=== PATIENT | male | born 1950 | race Caucasian/White ===

== ENCOUNTER 2018-02-27 21:20 | Emergency (ER) | payer MEDICARE, BC ==
[2018-02-27] MEDS ORDERED: cloNIDine 0.1 MG Tab PO STA (21:54)
--- NOTE | 2018-02-27 21:57 | EDM.PDOC ---
ED HPI GENERAL MEDICAL PROBLEM - General Chief Complaint: Cardiovascular Problem Stated Complaint: HIGH BLOOD PRESSURE 222 NOW KEEPS GOING UP Time Seen by Provider: 02/27/18 21:31 Source of Information: Reports: Patient, Old Records (ED 01/02/2018), RN Notes Reviewed History Limitations: Reports: No Limitations - History of Present Illness INITIAL COMMENTS - FREE TEXT/NARRATIVE: The patient states that he felt anxious around dinnertime tonight, therefore he checked his blood pressure. At 19:00, it was 183/111. At 20:00, it was 222/123, therefore the patient came to the ED for evaluation. His initial BP here in the ED was 208/105, with a HR of 62. At no time has the patient had a headache, blurry vision, chest pain, dyspnea, nausea, or diaphoresis. The patient has a history of hypertension, previously treated with metoprolol, but switched to Coreg 6.25 mg po BID on 01/05/2018. The patient states that he already took his Coreg tonight. His BP on 02/11/2018 was 150/95, and on 02/23/2018 , it was 160/100. The patient has a history of coronary artery disease, status post coronary angiogram on 06/20/2016, per the patient's Personnel Clerk, Dr. Kumar. No stents were placed, but the patient was started on Plavix. The patient's PCP is Kimberly Glover. - Related Data Allergies Allergy/AdvReac Type Severity Reaction Status Date / Time No Known Allergies Allergy Verified 01/02/18 22:33 Home Meds: Home Meds Clopidogrel [Plavix] 75 mg PO DAILY 06/20/16 [History] Aspirin [Low Dose Aspirin EC] 81 mg PO DAILY 01/02/18 [History] Pantoprazole Sodium [Protonix] 40 mg PO DAILY 01/02/18 [History] Rosuvastatin Calcium [Crestor] 40 mg PO DAILY 01/02/18 [History] Carvedilol [Coreg] 6.25 mg PO BID 02/27/18 [History] Past Medical History Cardiovascular History: Reports: CAD, High Cholesterol, Hypertension, [place] (2016) Gastrointestinal History: Reports: GERD - Past Surgical History Cardiovascular Surgical History: Reports: Other (See Below) (Coronary angiogram 06/20/2016) Social & Family History - Tobacco Use Smoking Status *Q: Never Smoker Tobacco Use Within Last Twelve Months: Smokeless Tobacco (Chews 1 poch per day) - Caffeine Use Caffeine Use: Reports: Tea - Alcohol Use Alcohol Use History: Yes Alcohol Use Frequency: Socially - Recreational Drug Use Recreational Drug Use: No - Living Situation & Occupation Living situation: Reports: Single, with Significant Other (Girlfriend) Occupation: Employed ([employer]) ED ROS GENERAL - Review of Systems Review Of Systems: ROS reveals no pertinent complaints other than HPI. ED EXAM, GENERAL - Physical Exam Exam: See Below Exam Limited By: No Limitations General Appearance: Alert, WD/WN, No Apparent Distress Eye Exam: Bilateral Eye: EOMI, Normal Inspection Ears: Normal External Exam, Hearing Grossly Normal Nose: Normal Inspection, No Blood Throat/Mouth: Normal Inspection, Normal Lips, Normal Voice, No Airway Compromise Head: Atraumatic, Normocephalic Neck: Normal Inspection, Full Range of Motion Respiratory/Chest: No Respiratory Distress, Lungs Clear, Normal Breath Sounds, No Accessory Muscle Use Cardiovascular: Normal Peripheral Pulses, Regular Rate, Rhythm, No Edema, No Gallop, No JVD, No Murmur, No Rub Peripheral Pulses: 4+: Radial (L), Radial (R) GI/Abdominal: Normal Bowel Sounds, Soft, Non-Tender, No Organomegaly, No Distention, No Abnormal Bruit, No Mass (Male) Exam: Deferred Rectal (Males) Exam: Deferred Back Exam: Normal Inspection, Full Range of Motion, NT Extremities: Normal Inspection, Normal Range of Motion, No Pedal Edema, Normal Capillary Refill Neurological: Alert, Oriented, Normal Cognition, No Motor/Sensory Deficits Psychiatric: Normal Affect Skin Exam: Warm, Dry, Intact, Normal Color, No Rash Course - Vital Signs Last Recorded V/S: Last Vital Signs Temp 36.8 C 02/27/18 21:34 Pulse 62 02/27/18 21:34 Resp 20 02/27/18 21:34 BP 168/106 H 02/27/18 22:15 Pulse Ox 98 02/27/18 21:34 - Orders/Labs/Meds Labs: Laboratory Tests 02/27/18 02/27/18 02/27/18 Range/Units 21:55 21:55 22:00 WBC 7.17 (4.23-9.07) K/mm3 RBC 5.04 (4.63-6.08) M/mm3 Hgb 14.4 (13.7-17.5) gm/L Hct 43.2 (40.1-51.0) % MCV 85.7 (79.0-92.2) fl MCH 28.6 (25.7-32.2) pg MCHC 33.3 (32.2-35.5) g/dl RDW Std Deviation 44.0 H (35.1-43.9) fL Plt Count 188 (163-337) K/mm3 MPV 9.5 (9.4-12.3) fl Neutrophils % (Manual) 66 H (40-60) % Band Neutrophils % 0 (0-10) % Lymphocytes % (Manual) 25 (20-40) % Atypical Lymphs % 0 % Monocytes % (Manual) 4 (2-10) % Eosinophils % (Manual) 4 (0.8-7.0) % Basophils % (Manual) 1 (0.2-1.2) Platelet Estimate Adequate Plt Morphology Comment Normal RBC Morph Comment Normal Sodium 140 (136-145) mEq/L Potassium 3.6 (3.5-5.1) mEq/L Chloride 103 (98-107) mEq/L Carbon Dioxide 27 (21-32) mEq/L Anion Gap 13.6 (5-15) BUN 19 H (7-18) mg/dL Creatinine 1.5 H (0.7-1.3) mg/dL Est Cr Clr Drug Dosing 53.17 mL/min Estimated GFR (MDRD) 47 (>60) mL/min BUN/Creatinine Ratio 12.7 L (14-18) Glucose 106 (80-115) mg/dL Calcium 9.0 (8.5-10.1) mg/dL Total Bilirubin 0.4 (0.2-1.0) mg/dL AST 20 (15-37) U/L ALT 20 (16-63) U/L Alkaline Phosphatase 66 (46-116) U/L Total Protein 7.9 (6.4-8.2) g/dl Albumin 4.0 (3.4-5.0) g/dl Globulin 3.9 gm/dL Albumin/Globulin Ratio 1.0 (1-2) Urine Color Light yellow (Yellow) Urine Appearance Clear (Clear) Urine pH 7.5 (5.0-8.0) Ur Specific [place] 1.015 (1.005-1.030) Urine Protein Negative (Negative) Urine Glucose (UA) Negative (Negative) Urine Ketones Negative (Negative) Urine Occult Blood Trace-intact H (Negative) Urine Nitrite Negative (Negative) Urine Bilirubin Negative (Negative) Urine Urobilinogen 0.2 (0.2-1.0) Ur Leukocyte Esterase Negative (Negative) Urine RBC 0-5 (0-5) /hpf Urine WBC 0-5 (0-5) /hpf Ur Epithelial Cells 0-5 (0-5) /hpf Urine Bacteria Not seen (FEW) /hpf Urine Mucus Not seen (FEW) /hpf Meds: Medications Discontinued Medications Generic Name Dose Route Start Last Admin Trade Name Freq PRN Reason Stop Dose Admin Clonidine HCl 0.2 mg 02/27/18 21:54 02/27/18 22:15 Catapres PO 02/27/18 21:55 0.2 mg ONETIME STA Administration - Re-Assessments/Exams Free Text/Narrative Re-Assessment/Exam: 02/27/18 21:55 The patient criterion for hypertensive urgency - asymptomatic elevated blood pressure with systolic >180 mmHg or diastolic > 120 mmHg. Current guidelines are unclear as to whether his blood pressure should be lowered over the course of hours or over the course of days, however, given the patient's known coronary artery disease, I have elected to treat him tonight with oral clonidine , with the goal of getting his SBP under 160 mmHg. I have ordered a CBC, CMP and urinalysis, to look for renal dysfunction and proteinuria. 02/27/18 23:27 The patient's BP has gradually declined, with a current reading of 135/82. The patient states that he feels well. I will discharge him home. Departure - Departure Time of Disposition: 23:28 Disposition: Home, Self-Care 01 Condition: Good Clinical Impression: Elevated blood pressure reading, MARIO (acute kidney injury) Referrals: Estiven Kumar [Primary Care Provider] - Kimberly Glover NP [Ordering Only Provider] - Forms: ED Department Discharge Additional Instructions: You were seen in the emergency room for elevated blood pressure. Workup in the ER included blood work and urinalysis. Your creatinine level, a reflection of your kidney function, is elevated at 1.5. It was 1.1 on 06/20/2016. There are a number of reasons why your creatinine level may rise, one of which is uncontrolled blood pressure. We recommend that you follow-up with your protohistorian, Dr. Kumar, at the next available appointment. In the meantime, continue to take your current medications as prescribed. If any other problems, please do not hesitate to return to the ER.
[2018-02-27 22:17] VITALS: BP 168/106
== END 2018-02-27 23:41 | disposition home or self-care (01) ==
LOC: JD.ED 21:20 → SUPCPDRO 21:20 → JD.ED 23:41
DX: I10 Essential (primary) hypertension (principal); N17.9 Acute kidney failure, unspecified; Z79.899 Other long term (current) drug therapy
CPT/HCPCS: 36415; 80053; 81001; 85007; 85027; 99283; A9270; 99284